=== PATIENT | female | born 1985 | race Asian ===

== ENCOUNTER 2016-11-16 14:23 | Emergency (ER) | payer OTHER ==
[~2016-11-16] VITALS: Ht 180.3 cm; Wt 154.2 kg
[2016-11-16 14:47] LABS: APPEARANCE,URINE CLEAR; KETONES,URINE NEGATIVE (NEGATIVE); LEUKOCYTE ESTERASE ,URINE 2+ (NEGATIVE); NITRITE,URINE NEGATIVE (NEGATIVE); PH,URINE 6 (4.5-8.0); PROTEIN,URINE NEGATIVE (NEGATIVE); UROBILINOGEN,URINE 1 MG/DL (0.0-1.0)
[2016-11-16 14:54] LABS: BACTERIA,URINE FEW /HPF; SQUAMOUS EPITHELIAL CELL,UR FEW /LPF (NONE/OCC)
--- NOTE | 2016-11-16 15:02 | Emergency Room Report ---
History of Present Illness General Chief Complaint: General Complaint Source: Patient Present Illness HPI 31-year-old male who identifies as a female resents to the emergency department complaining of dysuria x3 days with recent unprotected intercourse. Patient denies fevers chills lesions, discharge. Patient reports burning with urination in addition to hematuria. Patient denies abdominal pain, testicular, or flank pain. Patient denies history of STDs. Denies CP, Palpitations, LOC, AMS, dizziness, Changes in Vision, Sensation, paresthesias, or a sudden severe headache. Allergies: Coded Allergies: No Known Allergies (Unverified , 11/16/16) Patient History Past Medical History: see triage record Past Surgical History: none Pertinent Family History: none Last Menstrual Period: na Now: No Immunizations: UTD Reviewed Nursing Documentation: PMH: Agreed, PSxH: Agreed Nursing Documentation-PMH Past Medical History: No History, Except For Review of Systems All Other Systems: negative except mentioned in HPI Physical Exam Vital Signs Date Time Temp Pulse Resp B/P Pulse Ox O2 Delivery O2 Flow Rate FiO2 11/16/16 14:25 98.6 84 18 103/69 98 Room Air Sp02 EP Interpretation: reviewed, normal General Appearance: no apparent distress, alert, GCS 15, non-toxic Head: normocephalic, atraumatic Eyes: bilateral eye PERRL, bilateral eye normal inspection ENT: hearing grossly normal, normal pharynx, no angioedema, normal voice Neck: full range of motion, supple/symm/no masses Respiratory: chest non-tender, lungs clear, normal breath sounds, speaking full sentences Cardiovascular #1: regular rate, rhythm, no edema Gastrointestinal: normal bowel sounds, non tender, soft, no guarding, no rebound Rectal: deferred Genitourinary: normal inspection, no CVA tenderness Musculoskeletal: back normal, gait/station normal, normal range of motion, non- tender Neurologic: alert, oriented x3, responsive, motor strength/tone normal, sensory intact, speech normal Psychiatric: judgement/insight normal, memory normal, mood/affect normal Skin: normal color, no rash, warm/dry, well hydrated Lymphatic: no adenopathy Medical Decision Making PA Attestation Dr. Mix is my supervising Physician whom patient management has been discussed with. Diagnostic Impression: Primary Impression: Urethritis Additional Impression: Urinary tract infection Qualified Codes: N30.01 - Acute cystitis with hematuria ER Course 31-year-old male who identifies as a female resents to the emergency department complaining of dysuria x3 days with recent unprotected intercourse. Patient denies fevers chills lesions, discharge. Patient reports burning with urination in addition to hematuria. Patient denies abdominal pain, testicular, or flank pain. Patient denies history of STDs. Ddx considered but are not limited to UTi , STI, G & C, trichomonas, urethritis , epididymitis. Vital signs: are WNL, pt. is afebrile H&PE are most consistent with urethritis in a sexually active male under the age of 35. no penile lesions, no testicular symptoms. ORDERS: - UA: bacteria, WBC's elevated, and rbc's present indicating acute urinary infection. -Urine G & C: Pending ED INTERVENTIONS: -250mg Rocephin IM -Pyridium PO d/w pt. will treat prophylactically as well as send urine for culture. DISCHARGE: At this time pt. is stable for d/c to home. Will provide printed patient care instructions, and any necessary prescriptions. Care plan and follow up instructions have been discussed with the patient prior to discharge. Labs Test 11/16/16 14:33 Urine Color Yellow Urine Appearance Clear Urine pH 6 (4.5-8.0) Urine Specific Maxie 1.020 (1.005-1.035) Urine Protein Negative (NEGATIVE) Urine Glucose (UA) Negative (NEGATIVE) Urine Ketones Negative (NEGATIVE) Urine Occult Blood 5+ (NEGATIVE) Urine Nitrite Negative (NEGATIVE) Urine Bilirubin Negative (NEGATIVE) Urine Urobilinogen 1 MG/DL (0.0-1.0) Urine Leukocyte Esterase 2+ (NEGATIVE) Urine RBC 10-15 /HPF (0 - 2) Urine WBC 10-15 /HPF (0 - 2) Urine Squamous Epithelial Cells Few /LPF (NONE/OCC) Urine Bacteria Few /HPF (NONE) Last Vital Signs Date Time Temp Pulse Resp B/P Pulse Ox O2 Delivery O2 Flow Rate FiO2 11/16/16 14:25 98.6 84 18 103/69 98 Room Air Disposition: HOME, SELF-CARE Condition: Stable Scripts Cephalexin* (KEFLEX*) 500 Mg Capsule 500 MG ORAL EVERY 12 HOURS for 7 Days, #14 CAP 0 Refills Prov: Stefanie Key PKim 11/16/16 Doxycycline Hyclate* (VIBRAMYCIN*) 100 Mg Capsule 100 MG ORAL EVERY 12 HOURS for 7 Days, #14 CAP 0 Refills Prov: Stefanie Key 11/16/16 Patient Instructions: Urinary Tract Infection, [id number] Additional Instructions: Take medications as directed. Follow up with PCP in 3-5 days Return sooner to ED if new symptoms occur, or current symptoms become worse. - Please note that this Emergency Department Report was dictated using [employer] trainee technology software, occasionally this can lead to erroneous entry secondary to interpretation by the dictation equipment. Stefanie Key November 16, 2016 15:02
[2016-11-16] MEDS ORDERED: VIBRAMYCIN100 MG ORAL (15:04)
[2016-11-16] MEDS ORDERED: CEPHALEXIN500 MG ORAL (15:04)
[2016-11-16 15:28] VITALS: BP 107/72
[2016-11-16 15:29] VITALS: BP 103/69
== END 2016-11-16 15:30 | disposition home or self-care (01) ==
LOC: EMR 15:02
DX: N34.2 Other urethritis (principal); N30.01 Acute cystitis with hematuria
CPT/HCPCS: 81003; 87086; 87491; 87590; 96372; 99284; J0696

== ENCOUNTER 2018-05-25 02:13 | Emergency (ER) | payer OTHER ==
[~2018-05-25] VITALS: Ht 180.3 cm; Wt 181.4 kg
[~2018-05-25 02:13] MED LIST: CEPHALEXIN500 MG ORAL; VIBRAMYCIN100 MG ORAL
[2018-05-25] MEDS ORDERED: NKM (02:36)
[2018-05-25 02:47] VITALS: BP 110/84
--- NOTE | 2018-05-25 02:51 | Emergency Room Report ---
History of Present Illness General Chief Complaint: Skin Rash/Abscess Source: Patient Present Illness HPI This is a 32-year-old female with no past medical history. She presents with chief complaint of 2 sores in her mouth. Onset for last 5 days. No fever chills but no nausea no vomiting. No discharge. No other complaint. Allergies: Coded Allergies: No Known Allergies (Unverified , 11/16/16) Patient History Past Medical History: see triage record, old chart reviewed Past Surgical History: none Pertinent Family History: none Social History: Denies: smoking Last Menstrual Period: n/a Now: No Immunizations: other Reviewed Nursing Documentation: PMH: Agreed; PSxH: Agreed Review of Systems Eye: Denies: eye pain, blurred vision ENT: Denies: ear pain, nose congestion, throat swelling Respiratory: Denies: cough, shortness of breath Cardiovascular: Denies: chest pain, palpitations Gastrointestinal: Denies: abdominal pain, diarrhea, nausea, vomiting Musculoskeletal: Denies: back pain, joint pain Skin: Denies: rash Neurological: Denies: headache, numbness Endocrine: Denies: increased thirst, increased urine Hematologic/Lymphatic: Denies: easy bruising All Other Systems: negative except mentioned in HPI Physical Exam Vital Signs Date Time Temp Pulse Resp B/P (MAP) Pulse Ox O2 Delivery O2 Flow Rate FiO2 05/25/18 02:30 97.9 68 16 110/84 98 Room Air vitals normal Sp02 EP Interpretation: reviewed, normal General Appearance: well appearing, no apparent distress, alert Head: normocephalic, atraumatic Eyes: bilateral eye PERRL, bilateral eye EOMI ENT: hearing grossly normal, normal pharynx, other - There is a small aphthous ulcer midline of the lower lip. There is 1 inside the mouth on the left side. Neck: full range of motion, supple, no meningismus Respiratory: chest non-tender, lungs clear, normal breath sounds Cardiovascular #1: regular rate, rhythm, no murmur Gastrointestinal: normal bowel sounds, non tender, no mass, no organomegaly, no bruit, non-distended Musculoskeletal: back normal, gait/station normal, normal range of motion Psychiatric: mood/affect normal Skin: warm/dry Medical Decision Making Diagnostic Impression: Primary Impression: Aphthous ulcer ER Course Patient with a nonspecific aphthous ulcer on the mouth. No evidence of bacterial infection. No hasn't any STD. We'll discharge home. Last Vital Signs Date Time Temp Pulse Resp B/P (MAP) Pulse Ox O2 Delivery O2 Flow Rate FiO2 05/25/18 02:30 97.9 68 16 110/84 98 Room Air Status: unchanged Disposition: HOME, SELF-CARE Condition: Stable Referrals: [facility],REFERRING (PCP) Additional Instructions: Follow-up with your doctor in 7 days. Return if symptom worsen. Monico Stanley MD May 25, 2018 02:51
[2018-05-25 02:55] VITALS: BP 110/84
== END 2018-05-25 02:58 | disposition home or self-care (01) ==
LOC: EMR 02:35
DX: K12.0 Recurrent oral aphthae (principal)
CPT/HCPCS: 99282